=== PATIENT | female | born 1950 | race Caucasian/White ===

== ENCOUNTER → 2023-01-30 12:58 | Outpatient (BNVA) | payer MEDICARE, BC, SELFPAY | PROVIDERS: Family Provider Internal Medicine; PCP Internal Medicine; Referring Provider Dermatology; Visit Provider Student in an Organized Health Care Education/Training Program | DX: M19.011 Primary osteoarthritis, right shoulder (principal); M75.41 Impingement syndrome of right shoulder; M75.81 Other shoulder lesions, right shoulder | CPT/HCPCS: 20610; 73030; 99204; J3301 ==

== ENCOUNTER 2023-02-07 10:27 | Outpatient (RCR) | payer MEDICARE, BC, SELFPAY | END 2023-03-05 23:59 | disposition home or self-care (01) | LOC: SOT 10:27 | PROVIDERS: PCP Family Medicine; Visit Provider Student in an Organized Health Care Education/Training Program | DX: M25.811 Other specified joint disorders, right shoulder (principal) | CPT/HCPCS: 97110; 97165 ==

== ENCOUNTER → 2023-02-23 10:47 | Outpatient (BNVA) | payer MEDICARE, BC, SELFPAY | PROVIDERS: PCP Family Medicine; Visit Provider Family Medicine | DX: Z01.419 Encounter for gynecological examination (general) (routine) without abnormal findings (principal); Z13.6 Encounter for screening for cardiovascular disorders; Z13.1 Encounter for screening for diabetes mellitus | CPT/HCPCS: 80053; 80061; 87624 ==

== ENCOUNTER 2023-03-27 10:16 | Outpatient (CLI) | payer MEDICARE, BC, SELFPAY ==
--- NOTE | 2023-03-27 10:29 | MM_ITS ---
WS: [email or web address] Bilateral screening 3D tomosynthesis digital mammogram, 03/27/2023 Clinical Data: annual Comparison: 03/25/2022, 03/25/2021, 10/24/2019, Findings: The breast parenchymal pattern shows heterogeneous density. No spiculated masses or clustered calcifi cations are seen. There are no secondary signs of carcinoma. There are mole markers on the left breas t. MM/[place] [id number] Impression: 1. Negative bilateral mammogram unchanged. 2. Recommend annual screening mammograms. BIRADS: 1-Negative FOLLOW UP: 1 Year Follow-up The CAD power checker was used.
== END 2023-03-27 10:17 | disposition home or self-care (01) ==
PROVIDERS: PCP Family Medicine; Visit Provider Family Medicine
DX: Z12.31 Encounter for screening mammogram for malignant neoplasm of breast (principal)
CPT/HCPCS: 77063; 77067

== ENCOUNTER → 2023-07-24 13:26 | Outpatient (BNVA) | payer MEDICARE, BC, SELFPAY | PROVIDERS: PCP Family Medicine; Visit Provider Family Medicine | DX: R20.8 Other disturbances of skin sensation (principal); R00.2 Palpitations | CPT/HCPCS: 80053; 82607; 83735; 84443; 85025 ==

== ENCOUNTER → 2023-08-15 09:17 | Outpatient (BNVA) | payer MEDICARE, BC, SELFPAY | PROVIDERS: PCP Family Medicine; Visit Provider Specialist | DX: G62.89 Other specified polyneuropathies (principal); R20.8 Other disturbances of skin sensation; M62.58 Muscle wasting and atrophy, not elsewhere classified, other site | CPT/HCPCS: 95910 ==

== ENCOUNTER 2023-08-18 12:58 | Outpatient (CLI) | payer MEDICARE, BC, SELFPAY ==
--- NOTE | 2023-08-18 13:09 | XR_ITS ---
WS: [email or web address] Left ankle, 3 views, 08/18/2023 Clinical Data: peroneal neruopathy Comparison: None. Findings: No fractures or dislocations are seen. The ankle mortise is normal. The talus and calcaneus are unrem arkable. No soft tissue swelling over the medial or lateral malleolus is seen. Impression: Negative left ankle.
== END 2023-08-18 12:59 | disposition home or self-care (01) ==
PROVIDERS: PCP Family Medicine; Visit Provider Family Medicine
DX: M62.58 Muscle wasting and atrophy, not elsewhere classified, other site (principal); R20.8 Other disturbances of skin sensation; R94.130 Abnormal response to nerve stimulation, unspecified
CPT/HCPCS: 73610

== ENCOUNTER 2023-09-18 11:29 | Outpatient (CLI) | payer MEDICARE, BC, SELFPAY ==
--- NOTE | 2023-09-18 | MR_ITS ---
WS: [email or web address] MRI LUMBAR SPINE NONCONTRAST HISTORY: radiculopathy of L5-S1 COMPARISON: None available. TECHNIQUE: Sagittal and axial multisequence imaging is submitted. Reversal of the normal cervical lordosis centered at C5. Mild vertebral body contact on the cord with deformity. Centered at the T3 vertebral body level is a soft tissue mass with widening of the thoracic cord exte nding over a length of 2.8 cm. Extending just to the LEFT of the central cord is a 1.3 cm more well r ounded mass. Thoracic cord abnormality is probably all contiguous but needs to be further evaluated. Increase in the lumbar lordosis. L1 retrolisthesis by 4 mm. Disc spaces are all narrowed and desiccated. Conus terminates normally at L1-2 disc level. L1-L2: Mild disc bulging with facet and ligamentum flavum hypertrophy. Bilateral mild foraminal steno sis. L2-L3: Diffuse marked annular disc bulging with ligamentum flavum and facet arthritis. There is disc encroachment into the subarticular recesses. LEFT foraminal disc protrusion contributing to the mild central, bilateral subarticular recess and foraminal stenosis. L3-L4: Diffuse annular disc bulging with ligamentum flavum and facet arthritis. Deformity of the thec al sac. Moderate central, bilateral subarticular recess and mild foraminal stenosis. More significant encroachment upon the traversing L4 nerve roots. L4-L5: Diffuse annular disc bulging with marked ligamentum flavum and facet arthritis. Moderate centr al, bilateral subarticular recess and mild foraminal stenosis. L5-S1: Diffuse annular disc bulging with mild facet arthritis. Mild osteophytic ridging. Mild foramin al stenosis. Paravertebral soft tissues are negative. IMPRESSION: 1. Focal enlargement of thoracic cord and intramedullary, isointense mass centered at T3. This needs to be further evaluated with a dedicated MRI thoracic spine with and without contrast. Differential i ncludes astrocytoma, ependymoma and metastatic disease. 2. Increase in lumbar lordosis with L1 retrolisthesis by 4 mm. 3. L1-2 and L5-S1: Mild bilateral foraminal stenosis. 4. L2-3: LEFT foraminal disc protrusion. Mild central, bilateral subarticular recess and foraminal st enosis. 5. L3-4: Moderate central, bilateral subarticular recess and mild foraminal stenosis. Most significan t disc encroachment upon the traversing L4 nerve roots. 6. L4-5: Moderate central, bilateral subarticular recess and mild foraminal stenosis.
== END 2023-09-18 11:30 | disposition home or self-care (01) ==
LOC: RAD 11:29
PROVIDERS: PCP Family Medicine; Visit Provider Family Medicine
DX: M54.17 Radiculopathy, lumbosacral region (principal); M62.58 Muscle wasting and atrophy, not elsewhere classified, other site; R20.8 Other disturbances of skin sensation; R94.130 Abnormal response to nerve stimulation, unspecified; D48.7 Neoplasm of uncertain behavior of other specified sites
CPT/HCPCS: 72148

== ENCOUNTER 2023-09-19 12:45 | Outpatient (CLI) | payer MEDICARE, BC, SELFPAY ==
--- NOTE | 2023-09-19 12:55 | XR_ITS ---
WS: [email or web address] Exam: XR thoracic spine 3V* [id number] Date/Time of Exam: 09/19/2023 12:55 PM Reason For Exam: intramedullary mass at T3 No fracture or dislocation. No sign of bone destruction. Mild levoscoliosis of the lower T-spine. Spo ndylosis and degenerative disc changes at all levels. Moderately advanced degenerative changes involv ing the lower C-spine with disc degeneration and spondylosis from C5-C7. IMPRESSION: 1. No fracture or malalignment. 2. Mild scoliosis and mild to moderate degenerative changes.
== END 2023-09-19 12:46 | disposition home or self-care (01) ==
PROVIDERS: PCP Family Medicine; Visit Provider Family Medicine
DX: G95.89 Other specified diseases of spinal cord (principal); M41.9 Scoliosis, unspecified
CPT/HCPCS: 72072

== ENCOUNTER 2023-09-20 12:50 | Outpatient (CLI) | payer MEDICARE, BC, SELFPAY ==
--- NOTE | 2023-09-20 12:56 | XR_ITS ---
WS: [email or web address] Exam: [place] [id number] Date/Time of Exam: 09/20/2023 1:10 PM Reason For Exam: pain No scapular fracture or dislocation. Mild degenerative change at the glenohumeral joint and the AC erin int. Normal soft tissues. IMPRESSION: 1. Unremarkable scapula. 2. Mild degenerative change at the glenohumeral joint and the AC joint.
== END 2023-09-20 12:51 | disposition home or self-care (01) ==
LOC: RAD 12:53
PROVIDERS: PCP Family Medicine; Visit Provider Family Medicine
DX: M89.8X1 Other specified disorders of bone, shoulder (principal); M19.012 Primary osteoarthritis, left shoulder
CPT/HCPCS: 73010

== ENCOUNTER 2023-09-22 13:14 | Outpatient (CLI) | payer MEDICARE, BC, SELFPAY ==
--- NOTE | 2023-09-22 13:45 | MR_ITS ---
WS: [email or web address] MRI THORACIC SPINE with and without contrast HISTORY: intramedullary, isointense mass centered at T3 COMPARISON: MRI lumbar spine 09/18/2013. TECHNIQUE: Multiplanar sequences are performed in sagittal and axial planes. Postcontrast imaging Mul tiHance 10 mL IV. Advanced degenerative changes in the cervical spine at C5-6 with retrolisthesis and reversal of the c urvature. Increase in thoracic kyphosis. Reidentified is a well-circumscribed mass centered at the T3 level. On this MRI of the thoracic spine this mass appears extra medullary and intradural. There is mass effect upon the thoracic cord displa cing the cord to the RIGHT of midline. Mass is low signal intensity extending over a length of 1.8 cm . On the postcontrast imaging there is diffuse homogeneous intense enhancement. Largest transverse diam eter of 1.2 cm in transverse diameter of 1.3 cm. Mass extends over a length of 1.8 cm. On the sagitta l imaging there does appear to be a dural tail. No signal abnormality within the thoracic cord at thi s time. Multilevel areas of facet arthritis and mild foraminal stenosis. Shallow central disc protrusion at T 6-7 and T7-8. IMPRESSION: 1. Intensely enhancing intradural, extra medullary mass in the thoracic spine centered at the T3 leve l. Mass measures 1.2 x 1.3 and extends over a length of 1.8 cm. There does appear to be a dural tail. Differential includes meningioma and nerve sheath tumor. Metastatic disease also within the differen tial. Recommend surgical evaluation. 2. There is significant mass effect and deformity of the thoracic cord with displacement to the RIGHT . Resulting in stenosis of the thoracic cord at the T3 level.
== END 2023-09-22 13:15 | disposition home or self-care (01) ==
LOC: RAD 13:14
PROVIDERS: PCP Family Medicine; Visit Provider Family Medicine
DX: G95.89 Other specified diseases of spinal cord (principal); M48.9 Spondylopathy, unspecified; M43.9 Deforming dorsopathy, unspecified; M48.04 Spinal stenosis, thoracic region
CPT/HCPCS: 72157; A9577

== ENCOUNTER 2023-10-05 11:45 | Outpatient (CLI) | payer MEDICARE, BC, SELFPAY ==
--- NOTE | 2023-10-05 11:58 | MR_ITS ---
WS: [email or web address] MRI BRAIN WITH AND WITHOUT CONTRAST HISTORY: INTRADURAL EXTRAMEDULLARY THORACIC TUMOR COMPARISON: None available. TECHNIQUE: Multiplanar imaging performed through the brain with MultiHance 13 ml's IV. No acute infarcts are seen. Stewart-white matter differentiation is well preserved. Mild small vessel is chemic type changes in the periventricular and subcortical white matter. No prior infarct. There is o nly mild bilateral symmetric cerebral and cerebellar atrophy. No susceptibility artifacts or prior lacunar infarcts. Ventricles and extra-axial spaces are normal. Clivus and pituitary gland are normal. Visualized posterior fossa and brainstem are also normal. Postcontrast images are negative for masses or vascular malformations. Dural venous sinuses are normal. Paranasal sinuses: Mild mucoperiosteal disease ethmoid air cells. No air-fluid levels in the sinuses. Mastoid air cells: Normal. Calvarium and scalp: Normal. IMPRESSION: 1. No enhancing masses or vascular malformations. 2. Mild atrophy and mild small vessel ischemic type changes throughout the white matter. No prior la rge territory infarct.
--- NOTE | 2023-10-05 11:58 | MR_ITS ---
WS: [email or web address] MRI LUMBAR SPINE WITH AND WITHOUT CONTRAST HISTORY: INTRADURAL EXTRAMEDULLARY THORACIC TUMOR COMPARISON: 09/18/2023 TECHNIQUE: Sagittal and axial multisequence imaging is submitted. Reversal of the normal cervical lordosis. Cervical degenerative disc space narrowing. Reidentified is the recently described mass at the T3 level. This has been further described on the prior thoracic M RI of 09/22/2023. Increase in the lumbar lordosis. Retrolisthesis of T12, L1 and L2. Most significant at L1 by 4.5 mm. Disc spaces are mildly narrowed and desiccated. No fractures or marrow edema. Conus terminates normally at L1-2 disc level. L1-L2: Mild disc bulging with facet and ligamentum flavum hypertrophy mild bilateral foraminal stenos is. L2-L3: Diffuse annular disc bulging extending into the subarticular recesses. Ligamentum flavum and f acet arthritis. LEFT foraminal disc protrusion. Mild central, bilateral subarticular recess and salazar inal stenosis. L3-L4: Diffuse annular disc bulging with ligamentum flavum and facet arthritis. Flattening and deform ity of the ventral thecal sac. Moderate central, bilateral subarticular recess and mild foraminal marlen nosis. L4-L5: Diffuse annular disc bulging with marked ligamentum flavum and facet arthritis. Moderate centr al, bilateral subarticular recess and mild foraminal stenosis. L5-S1: Diffuse annular disc bulging with mild facet arthritis. Mild osteophytic ridging. Mild bilater al foraminal stenosis. Postcontrast imaging demonstrates no enhancing masses within the lumbar spine. Synovial enhancement i nvolving the RIGHT L4-5 facet joint. Soft tissue enhancement measures 1.7 x 1.5 cm. Lesser enhancemen t involving the LEFT facet joint in the facet joints of L5-S1. IMPRESSION: 1. No additional enhancing masses throughout the lumbar spine. 2. Extra medullary mass at the T3 level has been previously described. 3. Stable retrolisthesis of L1. 4. L4-5: Moderate central, bilateral subarticular recess and foraminal stenosis. 5. L2-3: Shallow LEFT foraminal disc protrusion. Mild central, bilateral subarticular recess and fora mega stenosis. 6. L3-4: Moderate central, bilateral subarticular recess and mild foraminal stenosis. 7. Postcontrast synovial enhancement of the RIGHT L4-5 facet joint. Most consistent with mild synovit is.
--- NOTE | 2023-10-05 11:58 | CTR_ITS ---
PROCEDURE INFORMATION: Exam: CT Thoracic Spine Without Contrast Exam date and time: 10/05/2023 1:52 PM Age: 72 years old Clinical indication: Mass, lump or swelling; Additional info: Intradural extramedullary thoracic tumor TECHNIQUE: Imaging protocol: Computed tomography of the thoracic spine without contrast. Radiation optimization: All CT scans at this facility use at least one of these dose optimization techniques: automated exposure control; mA and/or kV adjustment per patient size (includes targeted exams where dose is matched to clinical indication); or iterative reconstruction. REPORTING DATA: Count of CT and Cardiac NM exams in prior 12 months: This patient has received 0 known CTs and 0 known cardiac nuclear medicine studies in the 12 months prior to the current study. COMPARISON: MR thoracic spine wo/w [id number] 09/22/2023 1:28 PM RADIATION DOSE METRICS: Total DLP (mGy-cm): 348.61 FINDINGS: Bones/joints: Spinal alignment is normal. Vertebral body height is maintained. No acute fracture. Mild multilevel thoracic facet spondylosis. Small calcified disc protrusion at T6-T7. Small noncalcified disc protrusion at T11-12. No significant spinal stenosis associated with the disc protrusions. No acute fracture. Visible portions of the ribs are intact. There is subtle increased density within the thecal sac with vaguely masslike morphology on sagittal plane images consistent with an intradural extra medullary neoplasm seen on MRI of 09/22/2023. There are no bony changes, neural foraminal expansion or paraspinous mass associated with the lesion. Soft tissues: Paraspinal soft tissues are unremarkable. Lungs: Visible portions of the lungs are unremarkable. CT/CT thoracic spin wo con* [id number] IMPRESSION: 1. Faintly visible intradural mass at T3 corresponding to the findings on MRI 09/22/2023. No internal calcifications in the mass. No associated bone changes. 2. Incidental findings above.
[2023-10-05] MEDS: gadobenate dimeglumine 20 mL vial IV (13:14)
== END 2023-10-05 11:46 | disposition home or self-care (01) ==
LOC: RAD 11:46
PROVIDERS: PCP Family Medicine; Visit Provider Neurological Surgery
DX: D49.7 Neoplasm of unspecified behavior of endocrine glands and other parts of nervous system (principal); M43.16 Spondylolisthesis, lumbar region; M48.061 Spinal stenosis, lumbar region without neurogenic claudication; M51.26 Other intervertebral disc displacement, lumbar region
CPT/HCPCS: 70553; 72128; 72158; A9577

== ENCOUNTER 2024-01-03 11:53 | Outpatient (RCR) | payer MEDICARE, BC, SELFPAY | END 2024-01-04 23:59 | disposition home or self-care (01) | LOC: SPT 11:53 | PROVIDERS: PCP Family Medicine; Visit Provider Neurological Surgery | DX: Z98.890 Other specified postprocedural states (principal) | CPT/HCPCS: 97110; 97162 ==

== ENCOUNTER 2024-01-05 06:00 | Outpatient (RCR) | payer MEDICARE, BC, SELFPAY | END 2024-02-04 23:59 | disposition home or self-care (01) | LOC: SPT 06:00 | PROVIDERS: PCP Family Medicine; Visit Provider Neurological Surgery | DX: Z98.890 Other specified postprocedural states (principal) | CPT/HCPCS: 97110; G0283 ==

== ENCOUNTER → 2024-02-28 12:10 | Outpatient (BNVA) | payer MEDICARE, BC, SELFPAY | PROVIDERS: PCP Family Medicine; Visit Provider Family Medicine | DX: Z00.00 Encounter for general adult medical examination without abnormal findings (principal); Z13.6 Encounter for screening for cardiovascular disorders | CPT/HCPCS: 80053; 80061; 85025 ==

== ENCOUNTER 2024-03-28 10:10 | Outpatient (CLI) | payer MEDICARE, BC, SELFPAY ==
--- NOTE | 2024-03-28 10:30 | MM_ITS ---
WS: [email or web address] BILATERAL SCREENING DIGITAL TOMOSYNTHESIS MAMMOGRAM WITH CAD HISTORY: breast cancer screening COMPARISON: 03/27/2023, 03/25/2022 Bilateral CC and MLO views with tomosynthesis and synthetic mammography submitted. Computer aided det ection analyzed. Breast composition: The breasts are heterogeneously dense, which may obscure small masses. No suspici ous masses, microcalcifications or architectural distortion. Benign calcification central RIGHT breas t. MM/[place] [id number] IMPRESSION: BI-RADS: 2-Benign FOLLOW UP: 1 Year Follow-up
== END 2024-03-28 10:11 | disposition home or self-care (01) ==
LOC: RAD 10:10
PROVIDERS: PCP Family Medicine; Visit Provider Family Medicine
DX: Z12.31 Encounter for screening mammogram for malignant neoplasm of breast (principal); R92.30 Dense breasts, unspecified; R92.1 Mammographic calcification found on diagnostic imaging of breast
CPT/HCPCS: 77063; 77067

== ENCOUNTER → 2024-05-23 10:17 | Outpatient (BNVA) | payer MEDICARE, BC, SELFPAY | PROVIDERS: PCP Family Medicine; Visit Provider Student in an Organized Health Care Education/Training Program | DX: M75.41 Impingement syndrome of right shoulder; M75.81 Other shoulder lesions, right shoulder | CPT/HCPCS: 20610; 99213; J3301 ==

== ENCOUNTER → 2024-07-01 11:12 | Outpatient (BNVA) | payer MEDICARE, BC, SELFPAY | PROVIDERS: PCP Family Medicine; Visit Provider Family Medicine | DX: M85.80 Other specified disorders of bone density and structure, unspecified site (principal); R53.83 Other fatigue | CPT/HCPCS: 82306; 82607; 84443 ==

== ENCOUNTER → 2025-03-03 10:36 | Outpatient (BNVA) | payer MEDICARE, BC, SELFPAY | PROVIDERS: PCP Family Medicine; Visit Provider Family Medicine | DX: Z00.00 Encounter for general adult medical examination without abnormal findings (principal); R00.2 Palpitations; Z13.6 Encounter for screening for cardiovascular disorders; Z13.1 Encounter for screening for diabetes mellitus | CPT/HCPCS: 80053; 83735; 84443; 85025; 85651; 86140 ==

== ENCOUNTER 2025-03-06 12:44 | Outpatient (CLI) | payer MEDICARE, BC, SELFPAY ==
--- NOTE | 2025-03-06 12:50 | XR_ITS ---
WS: [email or web address] Lumbar spine, AP and lateral views, 03/06/2025 Clinical Data: worsening chronic neck/back pain, hx spinal tumor Comparison: None. Findings: No compression fractures or subluxation is seen. There is degenerative disc narrowing at all levels from L1-L2 through L5-S1. There are osteophytes at all levels L1-L5. The transverse processes and SI joints are normal. There is facet joint arthritis at all lumbar levels along with a gentle dextroscoliosis. There are cholecystectomy clips in the right upper quadrant. XR/XR lumbar spine 2-3V* [id number] Impression: 1. Multilevel degenerative disc narrowing with osteoarthritis. 2. Multilevel facet joint arthritis. 3. Minimal dextroscoliosis.
--- NOTE | 2025-03-06 12:50 | XR_ITS ---
WS: [email or web address] Thoracic spine, AP and lateral views, 03/06/2025 Clinical Data: worsening chronic neck/back pain, hx spinal tumor Comparison: Thoracic spine, 09/19/2023 Findings: No compression fractures are seen. The disc heights are normal. There are osteophytes of the mid and lower thoracic spine. There is a minimal levoscoliosis of the lower thoracic spine. There are cholecystectomy clips in the right upper quadrant. XR/XR thoracic spine 3V* [id number] Impression: Minimal osteoarthritis and levoscoliosis.
--- NOTE | 2025-03-06 12:50 | XR_ITS ---
WS: [email or web address] Cervical spine, 3 views, 03/06/2025 Clinical Data: worsening chronic neck/back pain, hx spinal tumor Comparison: None. Findings: No compression fractures are seen. There is degenerative disc narrowing at C5-C6 and C6-C7. There is loss of the normal lordotic curvature. There is osteoarthritis at C5-C6. There is no prevertebral soft tissue swelling. The odontoid is unremarkable. The soft tissues of the neck and the lung apices are normal. XR/XR cervical spine 3V* [id number] Impression: 1. Loss of normal lordotic curvature. 2. Degenerative disc narrowing with osteoarthritis at C5-C6 and C6-C7.
== END 2025-03-06 12:45 | disposition home or self-care (01) ==
LOC: RAD 12:46
PROVIDERS: PCP Family Medicine; Visit Provider Family Medicine
DX: M47.892 Other spondylosis, cervical region (principal); M47.896 Other spondylosis, lumbar region; R93.7 Abnormal findings on diagnostic imaging of other parts of musculoskeletal system; M50.322 Other cervical disc degeneration at C5-C6 level; M50.323 Other cervical disc degeneration at C6-C7 level; M25.78 Osteophyte, vertebrae; Z90.49 Acquired absence of other specified parts of digestive tract; M51.369 Other intervertebral disc degeneration, lumbar region without mention of lumbar back pain or lower extremity pain; M51.379 Other intervertebral disc degeneration, lumbosacral region without mention of lumbar back pain or lower extremity pain
CPT/HCPCS: 72040; 72072; 72100

== ENCOUNTER → 2025-04-01 09:47 | Outpatient (BNVA) | payer MEDICARE, BC, SELFPAY | PROVIDERS: PCP Family Medicine; Visit Provider Nurse Practitioner Family | DX: L81.4 Other melanin hyperpigmentation (principal); L57.8 Other skin changes due to chronic exposure to nonionizing radiation; L90.5 Scar conditions and fibrosis of skin; L82.1 Other seborrheic keratosis; D48.5 Neoplasm of uncertain behavior of skin; L57.0 Actinic keratosis | CPT/HCPCS: 11102; 17000; 99203 ==

== ENCOUNTER 2025-04-09 10:31 | Outpatient (CLI) | payer MEDICARE, BC, SELFPAY ==
--- NOTE | 2025-04-09 10:35 | MM_ITS ---
WS: [email or web address] BILATERAL 3D TOMOSYNTHESIS DIGITAL SCREENING MAMMOGRAPHY WITH CAD CLINICAL INFORMATION: SCREENING HISTORY: Screening mammogram. No current complaints. COMPARISON: 2023 TECHNIQUE: Bilateral CC and MLO views. FINDINGS: The breasts are composed of heterogeneous fibroglandular density tissue, which can limit the detection of small underlying mass lesions. Small focal asymmetric nodular density along the posterior nipple line in the central LEFT breast more prominent compared to previous. Recommend LEFT breast diagnostic mammography and ultrasound if persistent. RIGHT breast is unchanged. MM/MM [facility] tomosynthesis [id number] IMPRESSION: DENSITY: The breasts are heterogeneously dense, which may obscure small masses. BI-RADS: 0 - Incomplete: Need additional imaging evaluation FOLLOW UP: Need Additional Imaging Recommend LEFT breast diagnostic mammography and ultrasound if persistent.
== END 2025-04-09 10:32 | disposition home or self-care (01) ==
PROVIDERS: PCP Family Medicine; Visit Provider Family Medicine
DX: Z12.31 Encounter for screening mammogram for malignant neoplasm of breast (principal); R92.333 Mammographic heterogeneous density, bilateral breasts; N63.20 Unspecified lump in the left breast, unspecified quadrant; M75.41 Impingement syndrome of right shoulder
CPT/HCPCS: 20610; 77063; 77067; 99213; J3301; J9999

== ENCOUNTER → 2025-04-09 10:54 | Outpatient (BNVA) | payer MEDICARE, BC, SELFPAY | PROVIDERS: PCP Family Medicine; Visit Provider Internal Medicine | DX: R42 Dizziness and giddiness (principal); R00.2 Palpitations; I49.8 Other specified cardiac arrhythmias; I47.10 Supraventricular tachycardia, unspecified; I49.1 Atrial premature depolarization | CPT/HCPCS: 93242 ==

== ENCOUNTER 2025-04-24 13:21 | Outpatient (CLI) | payer MEDICARE, BC, SELFPAY ==
--- NOTE | 2025-04-24 13:30 | MM_ITS ---
WS: [email or web address] LEFT 3D TOMOSYNTHESIS DIGITAL MAMMOGRAPHY WITH CAD CLINICAL INFORMATION: birad-0 screening mammo HISTORY: Additional views COMPARISON: 2024 TECHNIQUE: 3 views of the left breast were obtained. FINDINGS: The left breast is composed of heterogeneous fibroglandular density tissue, which can limit the detection of small underlying mass lesions. Previously described small asymmetric density along the posterior nipple line in the central LEFT breast resolves today on the spot compression views. No new abnor malities. Recommend return to annual screening mammography. MM/MM diag LT tomosynthesis [id number] IMPRESSION: DENSITY: The breasts are heterogeneously dense, which may obscure small masses. BI-RADS: 1 - Negative FOLLOW UP: 1 Year Follow-up Recommend return to annual screening mammography.
== END 2025-04-24 13:22 | disposition home or self-care (01) ==
LOC: RAD 13:22
PROVIDERS: PCP Family Medicine; Visit Provider Family Medicine
DX: R92.333 Mammographic heterogeneous density, bilateral breasts (principal)
CPT/HCPCS: 77061; G0279

== ENCOUNTER 2025-04-29 14:15 | Outpatient (CLI) | payer MEDICARE, BC, SELFPAY ==
--- NOTE | 2025-04-29 14:30 | XR_ITS ---
WS: [email or web address] DEXA (DUAL ENERGY X-RAY ABSORPTIOMETRY) Bone mineral density was performed using a [employer] machine. HISTORY: osteopenia followup COMPARISON: None available. Lumbar spine BMD (L1-L4): 1.270 g/cm2 T score: 0.8 Z score: 2.6 Total hip BMD: Left: 0.893 g/cm2. T score: -0.9 Z score: 0.9 Right: 0.839 g/cm2. T score: -1.3 Z score: 0.5 10 year probability of a major osteoporotic fracture is 10.6%. XR/XR DEXA axial skeleton* [id number] IMPRESSION: OSTEOPENIA based upon the WHO classification for females.
== END 2025-04-29 14:16 | disposition home or self-care (01) ==
PROVIDERS: PCP Family Medicine; Visit Provider Family Medicine
DX: Z78.0 Asymptomatic menopausal state (principal); M85.80 Other specified disorders of bone density and structure, unspecified site
CPT/HCPCS: 77080

== ENCOUNTER 2025-05-06 10:52 | Outpatient (CLI) | payer MEDICARE, BC, SELFPAY ==
--- NOTE | 2025-05-06 10:59 | MR_ITS ---
WS: [email or web address] MRI CERVICAL SPINE NONCONTRAST HISTORY: CERVICALGIA COMPARISON: None available. Technique: Multiplanar, multisequence noncontrast imaging of the cervical spine. Reversal of the normal cervical lordosis centered at C5-6. C5 retrolisthesis by 3.7 mm. Severe degenerative disc disease at C5-6 and C6-7. Small cyst along the superior endplate of C6. No acute fracture. No marrow edema. Signal within the cervical cord is normal. Visualized posterior fossa is unremarkable. Craniocervical junction, C1 and C2 relationship, odontoid process and soft tissues are normal. C2-C3: Normal. C3-C4: Moderate bilateral facet arthritis and foraminal osteophytes. Mild bilateral foraminal stenosis. C4-C5: Diffuse annular disc bulging with mild facet arthritis. Mild effacement of the ventral CSF. Mild central with moderate bilateral foraminal stenosis due to disc osteophyte disease. C5-C6: Retrolisthesis of C5 with disc bulging and facet arthritis. Effacement of ventral CSF. Moderate to severe bilateral facet arthritis. Moderate central and bilateral foraminal stenosis. C6-C7: Diffuse osteophytic ridging with larger LEFT foraminal osteophyte. Effacement of the ventral CSF. Moderate bilateral facet arthritis. Moderate central and RIGHT foraminal stenosis severe LEFT foraminal stenosis. C7-T1: Bilateral facet arthritis. Mild bilateral foraminal stenosis. T1-2: Mild foraminal stenosis. Paraspinal soft tissue are normal. MR/MR cervical spin wo con* [id number] IMPRESSION: 1. Reversal of the normal cervical lordosis centered at C5-6. 2. C5-6: Moderate central and bilateral foraminal stenosis with moderate to se toni facet arthritis. 3. C6-7: Large LEFT foraminal osteophyte. Effacement of ventral CSF. Moderate central and RIGHT foraminal stenosis. Severe LEFT foraminal stenosis. 4. C4-5: Mild central with moderate bilateral foraminal stenosis due to disc o steophyte disease. 5. Multilevel facet joint arthropathy, most significant at C5-6 and C6-7.
== END 2025-05-06 10:53 | disposition home or self-care (01) ==
LOC: RAD 10:53
PROVIDERS: PCP Family Medicine
DX: D32.9 Benign neoplasm of meninges, unspecified (principal); M40.202 Unspecified kyphosis, cervical region; M47.812 Spondylosis without myelopathy or radiculopathy, cervical region; M48.02 Spinal stenosis, cervical region; M50.321 Other cervical disc degeneration at C4-C5 level; M47.892 Other spondylosis, cervical region; M99.63 Osseous and subluxation stenosis of intervertebral foramina of lumbar region
CPT/HCPCS: 72141

== ENCOUNTER 2025-05-07 12:40 | Outpatient (CLI) | payer MEDICARE, BC, SELFPAY ==
--- NOTE | 2025-05-07 12:45 | MR_ITS ---
WS: [email or web address] MRI THORACIC SPINE with and without contrast HISTORY: BENIGN NEOPLASM OF MENINGES COMPARISON: 09/22/2023 TECHNIQUE: Multiplanar sequences are performed in sagittal and axial planes. Postcontrast imaging 13 mL MultiHance. Reversal of the normal cervical lordosis. Component of central cervical stenosis at C4-5. Mild increase in thoracic kyphosis. Posterior thoracic vertebral alignment is normal. No fractures. Small amount of reactive marrow edema along the endplates of T10 and T11. Signal within the cord is normal. At the T3 level there is a subtle area of mild dural thickening and increased T2 signal. There is no enhancement. This corresponds to the site of the prior tumor resection. No recurrent mass is identified. There is mild deformity of the thoracic cord at the level of the surgical resection which is probably related to scar formation. T1-2: Normal. T2-3: Mild foraminal stenosis and facet arthritis. T3-4: Normal. T4-5: Normal. T5-6: Normal. T6-7: Normal. T7-8: Normal. T8-9: Normal. T9-10: Mild bilateral facet joint arthritis and foraminal stenosis. T10-11: Moderate bilateral facet arthritis and foraminal stenosis. T11-12: Mild facet arthritis and foraminal stenosis. No paravertebral soft tissue abnormality. No enhancing cord lesions. MR/MR thoracic spine wo/w [id number] IMPRESSION: 1. Status post removal of the intradural thoracic spine tumor at the T3 level. No evidence for recurrence. There is an area of mild soft tissue thickening re lated to scarring at the T3 level. No cord compression. 2. No new mass or recurrence. 3. Facet joint arthritis most significant at T10-11.
[2025-05-07] MEDS: gadobenate dimeglumine 20 mL vial 13 ML IV (13:46)
== END 2025-05-07 12:41 | disposition home or self-care (01) ==
LOC: RAD 12:41
PROVIDERS: PCP Family Medicine; Visit Provider Neurological Surgery
DX: D32.1 Benign neoplasm of spinal meninges (principal); R93.7 Abnormal findings on diagnostic imaging of other parts of musculoskeletal system; M54.2 Cervicalgia; M48.04 Spinal stenosis, thoracic region; M47.814 Spondylosis without myelopathy or radiculopathy, thoracic region; Z98.890 Other specified postprocedural states; M25.512 Pain in left shoulder; M47.894 Other spondylosis, thoracic region; M19.012 Primary osteoarthritis, left shoulder; M75.42 Impingement syndrome of left shoulder
CPT/HCPCS: 20610; 72157; 73030; 99213; A9577; J3301; J9999

== ENCOUNTER → 2025-08-12 10:36 | Outpatient (BNVA) | payer MEDICARE, BC, SELFPAY | PROVIDERS: PCP Family Medicine; Visit Provider Physician Assistant | DX: M19.011 Primary osteoarthritis, right shoulder (principal); M75.41 Impingement syndrome of right shoulder | CPT/HCPCS: 20610; 73030; 99213; J3301; J9999 ==

== ENCOUNTER → 2025-10-09 14:25 | Outpatient (BNVA) | payer MEDICARE, BC, SELFPAY | PROVIDERS: PCP Family Medicine; Visit Provider Nurse Practitioner Family | DX: L57.8 Other skin changes due to chronic exposure to nonionizing radiation (principal); L81.4 Other melanin hyperpigmentation; L82.1 Other seborrheic keratosis; L90.5 Scar conditions and fibrosis of skin; Z08 Encounter for follow-up examination after completed treatment for malignant neoplasm; Z85.828 Personal history of other malignant neoplasm of skin; L82.0 Inflamed seborrheic keratosis; Z78.9 Other specified health status; L53.8 Other specified erythematous conditions; R20.8 Other disturbances of skin sensation; L29.89 Other pruritus; L57.0 Actinic keratosis | CPT/HCPCS: 17000; 17110; 99213 ==